=== PATIENT | male | born 1970 | race Caucasian/White ===

== ENCOUNTER 2023-01-03 01:27 | Emergency (ER) | payer OTHER, SELFPAY ==
[2023-01-03] VITALS (11 sets, daily range): BP systolic 150–169; BP diastolic 80–103; PULSE 69–82; RESP 16–18; TEMP 36.2; O2SAT 96–100; BMI 19.9
--- NOTE | 2023-01-03 01:53 | PC.NURSE ---
Patient came in today after work for increased SOB from COPD exacerbation. patient states that he has been out of his respiratory medications for 3 days. he takes duo tabs, daily nebulizer treatments, and has an rescue inhaler. patient states he recently got insurance and has not been able to get into the doctors yet for refill of medications. Patient ambulated back to ed room unassisted with labored breathing. patient able to talk in short burst. patient lungs sound tight bilaterally with slight wheezes, and diminished. patient o2 saturation 98% on room air.
[2023-01-03] MEDS: IPRATROPIUM/ALBUTEROL SULFATE 3 ML AMPUL.NEB IH (02:13)
[2023-01-03] MEDS: ALBUTEROL SULFATE 200 PUFF/6.7 GM INHALER IH (02:14)
--- NOTE | 2023-01-03 02:42 | ED.SOB1 ---
HPI - SOB/Dyspnea General Chief Complaint: Shortness of Breath/Dyspnea Stated Complaint: SHORTNESS OF BREATH Time Seen by Provider: 01/03/23 01:40 Source: patient History of Present Illness HPI Narrative: This 52-year-old male with a history of chronic obstructive pulmonary disease/asthma presents for evaluation of cough, wheezing and shortness of breath. The patient states that he ran out of his nebulizer medications and has been using his albuterol MDI and used it out. He states that the smoke outside in the air has made his asthma worse than usual. He has quit smoking for the most part but still occasionally smokes one to 2 cigarettes a day. He denies any chest pain or fever. He denies any dizziness or syncope. He has no lower extremity pain or swelling. He states that he did not have insurance for a period of time but now he has insurance and made an appointment with Dr. Nair to see in follow-up. MD elicited complaint: shortness of breath and cough Pertinent past history: COPD and asthma Related Data Allergies Allergy/AdvReac Type Severity Reaction Status Date / Time erythromycin base Allergy Redness of Verified 01/03/23 01:34 Skin Review of Systems ROS Status of ROS 10 or more systems reviewed and unremarkable except as noted in history and below [facility] Medical History (Updated 01/03/23 @ 02:39 by Ritu Yoon MD) Social History Smoking status: Former smoker Exam Narrative Exam Narrative: Nurses note and vital signs reviewed and patient is not hypoxic.Blood pressure is mildly elevated at 150/80 General: Thin male resting comfortably on the stretcher, no respiratory distress, occasional dry bronchospastic cough noted, speaking in complete sentences Skin: Warm, dry, no pallor noted. There is no rash noted. Head: Normocephalic, atraumatic Eye: Normal conjunctiva, no drainage, EOMI. PERRL Ears, Nose, Mouth, and Throat: oral mucosa is moist. Cardiovascular: Regular Rate and Rhythm S1-S2, no murmurs rubs or gallops appreciated, pulses are brisk and equal bilaterally Respiratory: Patient is in no distress, Diffusely diminished breath sounds with occasional expiratory wheezing, no accessory muscle use, no rhonchi or rales appreciated Back: non-tender, no CVA tenderness bilaterally to percussion. GI: Normal bowel sounds, no tenderness to palpation, no masses appreciated. No rebound, guarding, or rigidity noted. Musculoskeletal: The patient has no evidence of calf tenderness, no pitting edema, symmetrical pulses noted bilaterally Neurological: A&O x4, normal speech Psychiatric: Cooperative Constitutional Vital Signs, click to edit/add: Last Vital Signs Temp 97.2 F L 01/03/23 01:31 Pulse 69 01/03/23 02:14 Resp 16 01/03/23 02:14 BP 150/80 H 01/03/23 01:36 Pulse Ox 99 01/03/23 02:30 O2 Del Method Room Air 01/03/23 02:14 Course Vital Signs Vital signs: Vital Signs Temperature 97.2 F L 01/03/23 01:31 Pulse Rate 82 01/03/23 01:31 Respiratory Rate 18 01/03/23 01:31 Blood Pressure 169/103 H 01/03/23 01:31 Pulse Oximetry 98 01/03/23 01:31 Oxygen Delivery Method Room Air 01/03/23 01:31 Temperature 97.2 F L 01/03/23 01:31 Pulse Rate 69 01/03/23 02:14 Respiratory Rate 16 01/03/23 02:14 Blood Pressure 150/80 H 01/03/23 01:36 Pulse Oximetry 99 01/03/23 02:30 Oxygen Delivery Method Room Air 01/03/23 02:14 MDM - SOB/Dyspnea MDM Narrative Medical decision making narrative: This 52-year-old male with a history of asthma/chronic obstructive pulmonary disease who continues to smoke only one or 2 cigarettes a day and uses albuterol MDI as well as albuterol and Atrovent nebulizer treatments for his symptoms presents for evaluation of cough, wheezing and shortness of breath. The patient has been out of his medications for the past 3 days. He states he ran out of his nebulizer medication and has been using his albuterol MDI but has not used it up. His vital signs are stable. He denies any chest pain. He had diminished breath sounds with occasional expiratory wheezes. He was given a DuoNeb treatment and albuterol MDI. Reevaluation he states he is feeling completely better. He is able to take deep breaths. He has improved air entry and his wheezing has resolved. He feels comfortable being discharged home at this time. He was discharged home with a refill of his MDI and a prescription for the DuoNeb nebulizer medication and refills as well as albuterol MDI and refills. He was encouraged to follow up closely with his family physician and return to emergency department for ongoing or worsening symptoms and to continue working on smoking cessation. Discharge Plan Discharge Chief Complaint: Shortness of Breath/Dyspnea Clinical Impression: COPD (chronic obstructive pulmonary disease) Patient Disposition: Home, Self-Care Time of Disposition Decision: 02:39 Condition: Good Instructions: COPD (Chronic Obstructive Pulmonary Disease) (ED) Stand Alone Forms: Portal Instructions Referrals: Martin Nair MD [Primary Care Provider] - 1 week
== END 2023-01-03 03:00 | disposition home or self-care (01) ==
PROVIDERS: Emergency Provider Emergency Medicine; PCP Family Medicine
DX: J44.9 Chronic obstructive pulmonary disease, unspecified (principal); F17.210 Nicotine dependence, cigarettes, uncomplicated
CPT/HCPCS: 94640; 99284

== ENCOUNTER 2023-04-28 16:26 | Emergency (ER) | payer OTHER, SELFPAY ==
[2023-04-28 16:32] VITALS: BP 150/90; PULSE 104; RESP 22; TEMP 36.7; O2SAT 98; BMI 20.1
--- NOTE | 2023-04-28 16:40 | XR_ITS ---
The [place] [id number] Patient Name: MICHELLE BAZZI MRN: [id number] date: 1970 Sex: M Assigned Patient Location: ER Current Patient Location: ER Accession/Order Number: [id number] Exam Date: 04/28/2023 17:00 Report Date: 04/28/2023 17:57 At the request of: BOAZ FRITZ Procedure: XR chest 2V EXAMINATION: XR chest 2V, , 04/28/2023 5:00 PM EST INDICATION: chest congestion, cough HISTORY: Ordering Provider Reason for Exam: chest congestion, cough Technologist Note: Additional: COMPARISON: Wrist x-ray dated 04/11/2022. TECHNIQUE: Chest x-ray: Two views. FINDINGS: No pneumothorax, pleural effusion or focal airspace consolidation. Heart is normal in size. Bony thorax is unremarkable. XR/XR chest 2V IMPRESSION: No acute cardiopulmonary process. Electronically authenticated by: CHRISTOPHE VARGAS Date: 04/28/2023 17:57
[2023-04-28 16:56] LABS: SARS-CoV-2 Ag NEGATIVE (NEGATIVE)
--- NOTE | 2023-04-28 18:32 | ED.GENADUL1 ---
HPI - General Adult General Chief complaint: Upper Respiratory Infection Stated complaint: chest congestion Time Seen by Provider: 04/28/23 18:12 Source: patient Mode of arrival: walk-in Limitations: no limitations History of Present Illness HPI narrative: Patient is a 53-year-old male who is presenting to the Emergency Room with 2-3 day complaints of cough, congestion, mild sore throat. Patient is concerned about possibility of colon secondary to his history of emphysema and chronic obstructive pulmonary disease. Patient doesn't PCP, Dr. Nair. Patient states she was a lot of other medications that he does not use eoog-ldm-djddhhy because he heard in the news that they don't work, so patient has been using Mucinex, Sudafed, And Excedrin. Patient's has had similar symptoms as well. Patient has a history of smoking 2-3 packs a day for many years, patient is Down to smoking only one or 2 cigarettes a day currently. Patient has no recent traveling. Patient works at [employer]. 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 Patient needs a work for note for today. Patient is off tomorrow works and on Saturday. No other acute complaints. Patient does have albuterol inhaler and nebulizer machine at home. Related Data Previous Rx's Medication Instructions Recorded albuterol sulfate 2.5 mg/3 mL 1.25 mg (1.5 mL) inhalation Q4H 04/28/23 (0.083 %) solution for nebulization PRN shortness of breath or wheezing #90 mL benzonatate 100 mg capsule 200 mg PO TID PRN cough #20 caps 04/28/23 myhaygzrkrxwguj-yvrlysgibqytsjj-WP 10 ml PO Q6H PRN cold symptoms 04/28/23 2 mg-30 mg-10 mg/5 mL oral syrup #200 mL (Bromfed DM) Allergies Allergy/AdvReac Type Severity Reaction Status Date / Time erythromycin base Allergy Redness of Verified 01/03/23 01:34 Skin Review of Systems ROS Narrative All systems are negative except as noted/marked. All systems reviewed and otherwise negative. [facility] Medical History (Updated 04/28/23 @ 18:32 by Dakota Steward MD) COPD (chronic obstructive pulmonary disease) ?J44.9 - Chronic obstructive pulmonary disease, unspecified (ICD-10) Hypertension ?I10 - Essential (primary) hypertension (ICD-10) Hypoglycemia ?E16.2 - Hypoglycemia, unspecified (ICD-10) Social History Smoking status: Current every day smoker Exam Narrative Exam Narrative: Nurses note and vital signs reviewed and patient is not hypoxic. General: The patient appears well and in no apparent distress. Patient is resting comfortably on cart. Patient is not toxic, lethargic, or listless. Patient has a dry cough during HPI. Skin: Warm, dry, no pallor noted. There is no rash noted. No petechiae, purpura. Head: Normocephalic, atraumatic Eye: Normal conjunctiva, no drainage, EOMI. PERRL Ears, Nose, Mouth, and Throat: oral mucosa is moist. Cardiovascular: Regular Rate and Rhythm, no murmur, gallop, rub Respiratory: Patient is in no distress, no accessory muscle use, lungs are clear to auscultation, no wheezing, rales or rhonchi. Patient had a faint wheeze to the right lower base when he coughed during auscultation, otherwise no wheezing, crackles or rales were heard during auscultation by myself. Back: non-tender, Musculoskeletal: Patient has full range of motion of all of the extremities, no motor, sensory, or focal neurological deficits Neurological: A&O x3, normal speech Psychiatric: Cooperative Constitutional Vital Signs, click to edit/add: Last Vital Signs Temp 98.1 F 04/28/23 16:32 Pulse 104 H 04/28/23 16:32 Resp 22 04/28/23 16:32 BP 150/90 H 04/28/23 16:32 Pulse Ox 98 04/28/23 16:32 Course Vital Signs Vital signs: Vital Signs Temperature 98.1 F 04/28/23 16:32 Pulse Rate 104 H 04/28/23 16:32 Respiratory Rate 22 04/28/23 16:32 Blood Pressure 150/90 H 04/28/23 16:32 Pulse Oximetry 98 04/28/23 16:32 Temperature 98.1 F 04/28/23 16:32 Pulse Rate 104 H 04/28/23 16:32 Respiratory Rate 22 04/28/23 16:32 Blood Pressure 150/90 H 04/28/23 16:32 Pulse Oximetry 98 04/28/23 16:32 Medical Decision Making MDM Narrative Medical decision making narrative: Patient chest x-ray and code were negative. Patient will continue using Excedrin, Mucinex, and Sudafed.Patient is given a prescription for Tessalon Perles and Bromfed. Patient has no indication acutely for antibiotics at this time. Deformities of antibiotics was discussed at bedside. Patient was given a work note for today, he missed work today. Patient is off tomorrow And works again on Saturday. Patient States he does not take a lot of ykce-aaw-zxrqmke medications because he heard the news at work. Patient believes the Sudafed, Excedrin and Mucinex were for him. Patient is given a refill on his albuterol inhaler as well, and has run out. Patient does have Nebules at home. No questions at discharge. Lab Data Labs: Lab Results 04/28/23 Range/Units 16:39 SARS-CoV-2 (PCR) Negative (NEGATIVE) Discharge Plan Discharge Chief Complaint: Upper Respiratory Infection Clinical Impression: Upper respiratory infection, COPD (chronic obstructive pulmonary disease), Bronchitis Patient Disposition: Home, Self-Care Condition: Fair Prescriptions / Home Meds: New albuterol sulfate 2.5 mg /3 mL (0.083 %) solution for nebulization 1.25 mg inhalation Q4H PRN (Reason: shortness of breath or wheezing) Qty: 90 0RF nvbvpyowmsemlvy-rlrzitxdt-XD [Bromfed DM] 2-30-10 mg/5 mL syrup 10 ml PO Q6H PRN (Reason: cold symptoms) Qty: 200 0RF benzonatate 100 mg capsule 200 mg PO TID PRN (Reason: cough) Qty: 20 0RF Instructions: Upper Respiratory Infection (ED), Acute Bronchitis (ED), COPD (Chronic Obstructive Pulmonary Disease) (ED) Additional Instructions: Continue taking Sudafed wnap-aqm-mtirijv along with her Excedrin. Continue the Mucinex. Use sjum-bwv-ishaovr Flonase daily. Use cough medication as needed as well. Increase fluids. Work note is been given Stand Alone Forms: Work/School Release, Portal Instructions Referrals: Martin Nair MD [Primary Care Provider] - 1 week
[2023-04-28 18:38] VITALS: BP 140/77; PULSE 87; O2SAT 97
[2023-04-29 16:05] LABS: SARS-CoV-2 NAA NOT DETECTED (NOT DETECTE)
== END 2023-04-28 18:41 | disposition home or self-care (01) ==
PROVIDERS: Emergency Provider Emergency Medicine; PCP Family Medicine
DX: J20.9 Acute bronchitis, unspecified (principal); J06.9 Acute upper respiratory infection, unspecified; J43.9 Emphysema, unspecified; F17.210 Nicotine dependence, cigarettes, uncomplicated; I10 Essential (primary) hypertension; Z20.822 Contact with and (suspected) exposure to COVID-19
CPT/HCPCS: 71046; 87635; 87811; 99284

== ENCOUNTER 2023-05-18 14:25 | Emergency (ER) | payer OTHER, SELFPAY ==
[2023-05-18] VITALS (11 sets, daily range): BP systolic 109–118; BP diastolic 68–85; PULSE 97–132; RESP 21–27; TEMP 37.7; O2SAT 93–95; BMI 19.9
--- NOTE | 2023-05-18 14:40 | ECG_ITS ---
The [facility] Test Date: 2023-05-18 Pat Name: MICHELLE BAZZI Department: Room: - Gender: Male [employer] Officer: : 1970 Requested By: DANNI JOHNSON Order Number: [id number] Reading MD: AMY BILLS Measurements Intervals [place] Rate: 116 P: 81 MN: 148 QRS: -50 QRSD: 78 T: 61 QT: 298 QTc: 367 Interpretive Statements 1120 Sinus tachycardia 2630 Left anterior fascicular block 6120 Possible right atrial enlargement 9150 abnormal ECG No previous ECG available for comparison Electronically Signed On 05-19-2023 6:18:42 EST by AMY BILLS
--- NOTE | 2023-05-18 14:40 | XR_ITS ---
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 Heterogeneous density is noted of the mid lower left lung field on frontal view. This appears to be in the lingula of the left upper lobe on lateral view. This is a new finding since previous exam. This probably represents some developing inflammatory infiltrate (pneumonia). The lungs are otherwise clear There is no evidence of pleural effusion or pneumothorax. XR/XR chest 2V IMPRESSION: The above-described findings likely represent developing pneumonia of the lingula of the left upper lobe. Electronically authenticated by: ISELA MILNER Date: 05/18/2023 15:28
--- NOTE | 2023-05-18 14:41 | ED.GENADUL1 ---
HPI - General Adult General Chief complaint: Chest Pain Stated complaint: COUGH/TIGHTNESS IN CHEST Time Seen by Provider: 05/18/23 14:32 Source: patient Mode of arrival: walk-in History of Present Illness HPI narrative: Patient evaluated in our ED on 04/28 and diagnosed with cold . He now presents with chest congestion, increased cough and pain in the left chest when he coughs. he is concerned that he might have pneumonia. He gave himself two breathing treatments earlier today and took Excedrin about 30 minutes ago. Related Data Previous Rx's Medication Instructions Recorded albuterol sulfate 2.5 mg/3 mL 1.25 mg (1.5 mL) inhalation Q4H 04/28/23 (0.083 %) solution for nebulization PRN shortness of breath or wheezing #90 mL benzonatate 100 mg capsule 200 mg (2 x 100 mg) PO TID PRN 04/28/23 cough #20 caps aquujbsbdqmwnbf-sglbkihkcsrnlzz-ER 10 ml PO Q6H PRN cold symptoms 04/28/23 2 mg-30 mg-10 mg/5 mL oral syrup #200 mL (Bromfed DM) albuterol sulfate 90 mcg/actuation 2 inh inhalation Q4H PRN shortness 04/29/23 aerosol inhaler of breath or wheezing #8.5 grams albuterol sulfate 90 mcg/actuation 2 inh inhalation Q6H PRN shortness 05/18/23 aerosol inhaler of breath or wheezing #8.5 grams levofloxacin 750 mg tablet 750 mg PO DAILY 7 days #7 tabs 05/18/23 Allergies Allergy/AdvReac Type Severity Reaction Status Date / Time erythromycin base Allergy Redness of Verified 01/03/23 01:34 [facility] Medical History (Updated 05/18/23 @ 15:36 by Alfred Pearson) Hypertension ?I10 - Essential (primary) hypertension (ICD-10) Hypoglycemia ?E16.2 - Hypoglycemia, unspecified (ICD-10) COPD (chronic obstructive pulmonary disease) ?J44.9 - Chronic obstructive pulmonary disease, unspecified (ICD-10) Social History Smoking status: Current every day smoker Exam Narrative Exam Narrative: Nurses notes and vital signs reviewed and patient is not hypoxic. afebrile General: Well-appearing and in no apparent distress. Skin: Warm, dry, no pallor noted. No rash. Head: Normocephalic, atraumatic. Neck: Supple, non-tender. No cervical Eye: Pupils are equal, round and EOMI. No scleral icterus. Ears, Nose, Mouth, and Throat: TM are clear, no posterior oropharynx erythema or nasal mucosal hypertrophy, uvula is mid-line Oral mucosa is moist Cardiovascular: Regular Rate and Rhythm without murmur, gallop or rub. Respiratory: No accessory muscle use or respiratory distress. Lungs with left sided rhonchi Musculoskeletal: normal ROM, no calf or popliteal tenderness, no lower extremity edema/swelling Neurological: A&O x4. No cranial nerve dysfunction observed. No truncal ataxia. Moves all extremities. Sensation intact. Psychiatric: Cooperative and interactive. Normal mood and affect. Constitutional Vital Signs, click to edit/add: Last Vital Signs Temp 99.8 F 05/18/23 14:30 Pulse 97 H 05/18/23 15:30 Resp 21 05/18/23 15:30 BP 112/68 05/18/23 15:30 Pulse Ox 93 L 05/18/23 15:30 O2 Del Method Room Air 05/18/23 14:46 Course Vital Signs Vital signs: Vital Signs Temperature 99.8 F 05/18/23 14:30 Pulse Rate 132 H 05/18/23 14:30 Respiratory Rate 26 H 05/18/23 14:30 Blood Pressure 118/85 05/18/23 14:30 Pulse Oximetry 94 L 05/18/23 14:30 Oxygen Delivery Method Room Air 05/18/23 14:30 Temperature 99.8 F 05/18/23 14:30 Pulse Rate 97 H 05/18/23 15:30 Respiratory Rate 21 05/18/23 15:30 Blood Pressure 112/68 05/18/23 15:30 Pulse Oximetry 93 L 05/18/23 15:30 Oxygen Delivery Method Room Air 05/18/23 14:46 Medical Decision Making MDM Narrative Medical decision making narrative: EKG obtained. My interpretation is noted below. Chest x-ray also obtained and the patient was found to have a developing pneumonia of the lingula of the left upper lobe. The patient was informed of results and discharged home with prescription for antibiotic - he is allergic to erythromycin so I prescribed Levaquin. Patient advised to rest, stay at home, practice social distancing, take Motrin and Tylenol for pain and fever if not allergic, stay well hydrated with Gatorade or similar drinks if vomiting or eat as tolerated if not and take any meds as prescribed. Reviewed reasons to return including rapid increase in respiratory rate, shortness of breath, confusion, inability to keep down sips of swallowed liquids for more than 24 hours. Asked patient to encourage any ill contacts to stay home and practice similar advice. 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 Heterogeneous density is noted of the mid lower left lung field on frontal view. This appears to be in the lingula of the left upper lobe on lateral view. This is a new finding since previous exam. This probably represents some developing inflammatory infiltrate (pneumonia). The lungs are otherwise clear There is no evidence of pleural effusion or pneumothorax. IMPRESSION: The above-described findings likely represent developing pneumonia of the lingula of the left upper lobe. Electronically authenticated by: ISELA MILNER Date: 05/18/2023 15:28 ECG Data Attestation: I personally reviewed and interpreted this ECG as follows: Interpretation: EKG interpretation: Emergency Department physician interpretation. sinus tachycardia at 116bpm. LAFB. ABHISHEK. no ST segment elevation or depression. Discharge Plan Discharge Chief Complaint: Chest Pain Clinical Impression: Community acquired pneumonia Patient Disposition: Home, Self-Care Time of Disposition Decision: 15:36 Prescriptions / Home Meds: New levofloxacin 750 mg tablet 750 mg PO DAILY 7 Days Qty: 7 0RF albuterol sulfate 90 mcg/actuation HFA aerosol inhaler 2 inh inhalation Q6H PRN (Reason: shortness of breath or wheezing) Qty: 8.5 0RF No Action albuterol sulfate 2.5 mg /3 mL (0.083 %) solution for nebulization 1.25 mg inhalation Q4H PRN (Reason: shortness of breath or wheezing) Qty: 90 0RF hwhpquhvbyknmqg-suuwdgycq-AE [Bromfed DM] 2-30-10 mg/5 mL syrup 10 ml PO Q6H PRN (Reason: cold symptoms) Qty: 200 0RF benzonatate 100 mg capsule 200 mg PO TID PRN (Reason: cough) Qty: 20 0RF albuterol sulfate 90 mcg/actuation HFA aerosol inhaler 2 inh inhalation Q4H PRN (Reason: shortness of breath or wheezing) Qty: 8.5 0RF Instructions: Community Acquired Pneumonia (ED) Stand Alone Forms: Portal Instructions Referrals: Martin Nair MD [Primary Care Provider] - 1 week
--- NOTE | 2023-05-18 14:45 | PC.NURSE ---
describes this as a twinge feeling to left side chest
[2023-05-18 15:00] LABS: SARS-CoV-2 Ag NEGATIVE (NEGATIVE)
[2023-05-18 15:56] LABS: SARS-CoV-2 NAA NOT DETECTED (NOT DETECTE)
== END 2023-05-18 15:50 | disposition home or self-care (01) ==
PROVIDERS: Emergency Provider Emergency Medicine; PCP Family Medicine
DX: J18.9 Pneumonia, unspecified organism (principal); J44.0 Chronic obstructive pulmonary disease with (acute) lower respiratory infection; F17.210 Nicotine dependence, cigarettes, uncomplicated; I10 Essential (primary) hypertension; Z20.822 Contact with and (suspected) exposure to COVID-19
CPT/HCPCS: 71046; 87635; 87811; 93005; 99285